=== PATIENT | male | born 1960 | race Two or more races ===

== ENCOUNTER → 2017-03-03 | Outpatient (CLI) | payer OTHER ==
--- NOTE | 2017-03-03 15:45 | RAD ---
Exam : Carotid Duplex with Grayscale Ultrasound and Spectral and Color Doppler Analysis: Clinical Indications: Carotid stenosis. Comparison study: None available. PQRS Compliance Statement - Stenosis calculations for CT, MR and conventional angiography are based upon measurement of the distal ICA diameter in accordance with the NASCET methodology. Stenosis calculations for carotid ultrasound studies are derived from validated velocity criteria which are known to correlate with the NASCET methodology. Findings: The common, internal and external carotid arteries were examined by grayscale, color and spectral Doppler ultrasound. There is diffuse atherosclerotic vascular disease, most pronounced in the carotid bulbs. Elevated velocities are noted, most prominently in the mid right internal carotid artery. Flow in both vertebral arteries was antegrade. The following are the velocities and ratios in the carotid arteries on both sides: RIGHT ICA PV: 162cm/sec RIGHT CCA PV: 94cm/sec RIGHT ICA ED: 42cm/sec RIGHT IC/CCPV: 1.7 RIGHT VERTEBRAL: antegrade flow LEFT ICA PV: 121cm/sec LEFT CCA PV: 83cm/sec LEFT ICA ED: 33cm/sec LEFT IC/CCPV: 1.5 LEFT VERTEBRAL: antegrade flow <50% ICA Stenosis: PSV < 125cm/s (EDV < 40cm/s; SVR < 2.0) 50-69% ICA Stenosis: PSV < 125-229cm/s (EDV 40-99cm/s; SVR 2.0-3.9) >70% ICA Stenosis: PSV > 230cm/s (EDV >100cm/s; SVR >4.0) Impression: 1.Atherosclerotic plaquing most prominent at the right carotid bulb. 2.There is approximately 50-69% stenosis of the mid right internal carotid artery. 3. Less than 50% stenosis of the left internal carotid artery by ultrasound criteria 4. Consider CT angiography for further characterization
== END | disposition home or self-care (01) ==
LOC: US 14:32
PROVIDERS: ATTEND Physician Assistant
DX: I65.21 Occlusion and stenosis of right carotid artery (principal)
CPT/HCPCS: 93880